=== PATIENT | male | born 1955 | race Caucasian/White ===

== ENCOUNTER 2025-01-15 09:10 | Outpatient (CLI) | payer BC, SELFPAY ==
--- OUTSIDE RECORDS SUMMARY | 2006-02-05 07:50 | XMS_ITS | Continuity of Care Document ---
Author Organization [facility] Address [address] [place] [phone] Phone Care Team Providers Care Tester Operator Name Role Phone Ben Robison MD Unavailable Unavailable Procedures Procedure Date Postop followup visit Postop followup visit [place] Office consultation, moderate 6 Repair finger tendon, closed Stack Splint, Finger Advance Directives Directive Yes / No Effective Date File Name No Information Encounters Encounter Description Practice Location Reason(s) For Visit Diagnoses Date Provider Providers Copied on Encounter [facility], [address] [place] [address], [id number], [phone] [facility] No Information 6 Enriqueta Contreras. [address] [place] [address], [address], [id number] , [place]. tel: [phone] [facility], [address] [place] [address], [id number], [place] tel:[phone] [facility] No Information 6 Enriqueta Contreras. [address] [place] [address], [address], [id number] , [place]. tel: [phone] Office consultation, moderate [facility], [address] [place] [address], [id number], tel:[phone] [facility] No Information 6 Enriqueta Contreras. [address] [facility], [address], [place], [place], [id number] , [place]. tel: [phone] Family History Family Member Type Diagnosis Age At Onset No Information Payers Payer name Insurance type Covered constitution party ID Authoraurea tibaldemar(s) [facility] [id number] Social History Type Description Quantity Date Captured Comments Sex Male Smoking Status No Information Chief Complaint And Reason For Visit No Information Reason For Referral Reason For Referral No Information History Of Present Illness Encounter Date Complaint History Of Prese nt Illness No Information Functional Status Date Functional Assessmen t No Information Instructions Date Instruction Additional Infor mation No Information Assessments Type Assessment Date No Information Patient Care Teams Name Effective Dates (start - stop) Status Members No Information
--- OUTSIDE RECORDS SUMMARY | 2025-01-15 09:40 | XMS_ITS | Patient Health Record ---
Author Organization [facility] Address [address] [place] [address] Care Team Providers Care Drill Press Hand Name Role Phone Madhu Dove MD Primary Care Provider UnavailANDRZEJ Tavarez Unavailable [phone] Dixie Richardson MD Unavailable Unavailable Allergies Allergen (clinical drug ingredient) Drug/Non Drug Allergy documented on EMR Reaction Allergy Type Onset Date Status keflex (uncoded) hives Allergy Act hieu wheat/dairy (uncoded) stomach upset/head aches Allergy Active Reason For Referral No Information Medications Medication SIG (Take, Route, Fr equency, Duration) Notes Start Date End Date Status Omeprazole 20 MG 1 capsule Orally Onc e a day; Duration: 30 day(s) Not-Taking Carac Not-Taking Avodart Not-Taking Problems Problem Type SNOMED Code ICD Code Onset Dates Problem Status W/U Status Risk Notes Problem Benign neoplasm of prostate (50843145) Benign neoplasm of prostate (222.2) Active confirmed Problem Chronic otitis externa (13669560) Other chronic otitis externa (380.23) Active confirmed Problem Actinic keratosis (737350) Actinic keratosis (702.0) Active confirmed Problem Vitamin D deficiency (45382355) Vitamin D deficiency, unspecified (E55.9) Active confirmed Problem Chronic otitis externa (82969007) Unspecified chronic otitis externa, unspecified ear (H60.60) Active confirmed Problem Sensorineural hearing loss of bilateral ears (disorder) (981409630) Sensorineural hearing loss, bilateral (H90.3) Active confirmed Problem Allergic rhinitis due to food (615904764) Allergic rhinitis due to food (J30.5) Active confirmed Problem Gastro-esophageal reflux disease with esophagitis (682793358) Gastro-esophageal reflux disease with esophagitis (K21.0) Active confirmed Problem Gastro-esophageal reflux disease without esophagitis (945763399) Gastro-esophageal reflux disease without esophagitis (K21.9) Active confirmed Problem Actinic keratosis (668501) Actinic keratosis (L57.0) Active confirmed Plan Of Treatment No Information Insurance Providers Payer Name Payer Address Payer Phone Subscriber Number Group Number Insured Name Patient Relationship to Insured Coverage Start Date Coverage End Date [facility] MED PLAN [address] [address] [place] [address] [phone] [id number] Mike Cleaning Self - patient is the insured Medical (General) History Medical History History ICD Code Prostate condition Actinic Keratosis Diverticulitis s/p Hemroidectomy s/p Lasik eye surgery otitis externa Surgical History Surgery Date(Month/Year) Hemroidectomy 2009 Lasik Eye surgery 2009
--- OUTSIDE RECORDS SUMMARY | 2025-01-15 09:40 | XMS_ITS | Clinical Summary ---
Author Organization [facility] [address] Address [address] [place] [id number] Care Team Providers Care Community Service Specialist Name Role Phone Uziel Bryan MD Primary Care Provider [phone] Allergies Active Allergy Reactions Criticality Noted Date Comments Cephalexin Rash Medium 04/29/2009 Medications amoxicillin-cla vulanate (AUGMENTIN) 875-125 mg per tabletIndicatio ns:Acute maxillary sinusitis, recurrence not specified Take 1 tablet by mouth 2 (two) times a day for 7 days 14 tablet 12/15/2024 Active Problems Problem Noted Date Diagnosed Date Lumbar spinal stenosis 05/20/2024 Overview (05/20/2024): CT 03/2023 Chronic prostatitis 05/20/2024 Overview (05/20/2024): Dr Aguilar Leon Elevated PSA treated with shereen and abx, off all meds as of 05/20/24 Erectile dysfunction 05/20/2024 Lower urinary tract symptoms due to benign prostatic hyperplasia 05/20/2024 Healthcare maintenance 05/20/2024 Hypersomnia 05/20/2024 Encounters Date Type Department Care Team Description 12/15/2024 7:15 PM CDT Office Visit [facility] at [address] [phone] Henry Arroyo NP Acute maxillary sinusitis, recurrence not specified (Primary Dx) from Last 3 Months Immunizations Immunization Administration Dates Next Due Influenza Virus Vaccine Trivalent Mdv 02/02/2024 Influenza, Unspecified 12/16/2022(Deferred: Mariluz ent Refused) Pfizer Sars-Cov-2 Bivalent V accination (12+ YRS) 02/08/2024 Pneumococcal Conjugate Pcv20 05/20/2024 Surgical History Surgery Date Site/Laterality Comments LASIK 2001,2009 COLON SURGERY 1968 APPENDECTOMY 1968 KNEE ARTHROSCOPY W/ LATERAL RELEASE 2006,2009 SHOULDER ARTHROSCOPY 03/18/2007 - 03/17/2008 Medical History Medical History Date Comments Sleep apnea 1995 GERD (gastroesophageal reflux disease) 1981 Benign prostatic hyperplasia 2012 Brain concussion March 2023 Family History Medical History Relation Name Comments Alzheimer's disease Father Mike Coelho Sr Alzheimer's disease Father's Sister Arthritis Mother Jewel Terracina Breast cancer Mother Jewel Terracina Memory loss Mother Jewel Terracina Miscarriages / Stillbirths Mother Jewel Terracin a Diabetes Sister 1 Rhiannonhomero Spencerch Cancer Sister 2 Sophia Yogi Diabetes Sister 2 Sophia Yogi Relation Name Status Comments Father Mike Coelho Sr Father's Sister Alive Mother Margarito Ornelasacina Sister 1 Rhiannon Staton Sister 2 Sophia Calix Alive Social History Tobacco Use Types Packs/Day Years Used Date Smoking Tobacco: Never Smokeless Tobacco: Never Tobacco Cessation:Counseling Given: Not Answered PHQ-2 Answer Date Recorded PHQ-2 Total Score (If total score is 3 or more points, staff should administer the PHQ-9) 0 05/20/2024 Personal Safety Answer Date Recorded Have you ever been in or are you currently in a harmful physical or emotional relationship or is someone making you feel afraid or unsafe? 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 Not on file Not on file Not on [employer] [employer] History Last Filed Vital Signs Vital Sign Reading Time Taken Comments Blood Pressure 120/79 12/15/2024 7:22 PM CDT Pulse 68 12/15/2024 7:22 PM CDT Temperature 36.4 C (97.6 F) 12/15/2024 7:22 PM CDT Respiratory Rate 20 12/15/2024 7:22 PM CDT Oxygen Saturation 98% 12/15/2024 7:22 PM CDT Inhaled Oxygen Concentration - - Weight 76.7 kg (169 lb) 12/15/2024 7:22 PM CDT Height 175.3 cm (5' 9) 05/20/2024 8:52 AM BOAT OUTFITTER Body Mass Index 24.96 05/20/2024 8:52 AM BOAT OUTFITTER Plan of Treatment Health Maintenance Due Date Last Done Comments Colon Cancer Screening-Colonoscopy 1957 Prostate Cancer Screening-PSA 1957 DTaP/Tdap/Td Vaccine (1 - Tdap) 1968 Hepatitis B Screening 10/04/1975 Zoster Vaccine (1 of 2) 10/04/2007 Covid-19 Vaccine (2 - season) 2024 Influenza Vaccine (#1) 2024 02/02/2024 Depression Screening 05/20/2025 05/20/2024 Fall Risk Assessment 05/20/2025 05/20/2024 Well Visit 65+ 05/20/2025 05/20/2024 Pneumococcal vaccine 65+ Completed 05/20/2024 Hepatitis C Screening Completed 06/05/2024 Procedures Procedure Name Priority Date/Time Associated Diagnosis Comments HEPATITIS C ANTIBODY Routine 06/05/2024 8:12 AM CDT Healthcare maintenance from Last 3 Months or Most Recently Relevant to Health Maintenance Results * Hepatitis C antibody Blood (06/05/2024 8:12 AM CDT) Hep C Ab Nonreactive Nonreactive Comment: Interpretive Data Nonreactive: Antibodies to HCV not detected. Does NOT exclude the possibility of recent exposure to HCV. Equivocal: Equivocal for HCV antibodies. Supplemental molecular testing will be automatically performed to determine infection status in accordance with current CDC screening recommendations. Reactive: Positive for HCV antibodies. This may represent current or past HCV infection. Supplemental molecular testing will be automatically performed to determine current infection status in accordance with current CDC screening recommendations. Interpretive data was last revised on 2019. Blood 06/05/2024 8:12 AM CDT 06/05/2024 3:55 PM CDT us Uziel Bryan MD LAB MICROBIOLOGY - GENERAL [place] [id number] [address] Department [place] [address] from Last 3 Months or Most Recently Relevant to Health Maintenance Insurance [facility] Care Teams Community Service Specialist Relationship Specialty Start Date End Date Uziel Bryan MD [address] [address] PCP - General Internal Medicine 05/20/24
--- OUTSIDE RECORDS SUMMARY | 2025-01-15 09:41 | XMS_ITS | Patient Health Record ---
Author Organization [facility] Address [address] [place] [address] Care Team Providers Care Address Change Clerk Name Role Phone Madhu Dove MD Primary Care Provider Salomón Neumann Unavailable [phone] Allergies Allergen (clinical drug ingredient) Drug/Non Drug Allergy documented on EMR Reaction Allergy Type Onset Date Status Keflex Unknown Drug Allergy Active Reason For Referral No Information Social History Tobacco Use: Social History Observation Description Date Details (start date - stop date) Never Smoker NA - NA Tobacco Use/Smoking Question Answer Notes Smoking Status: nonsmoker Problems Problem Type SNOMED Code ICD Code Onset Dates Problem Status W/U Status Risk Notes Problem Lower urinary tract symptoms due to benign prostatic hypertrophy (77108857073090) Benign prostatic hyperplasia with lower urinary tract symptoms (N40.1) Active confirmed Problem Chronic prostatitis (29133207) Prostatitis, chronic (N41.1) Active confirmed Problem Erectile dysfunction (805284911) Erectile dysfunction (N52.9) Active confirmed Plan Of Treatment Pending Test Test Name Order Date IH - Bladder scan 04/24/2022 IH - Bladder scan 12/13/2020 IH - Bladder scan 04/20/2021 IH - Urinalysis Auto W/O Scope W/O Creat inine 12/13/2020 IH - Urinalysis Auto W/O Scope W/O Creat inine 04/20/2021 PSA Total+% Free (Serial) MORALEZ ([id number]) Urine FISH-UroVysion MORALEZ 04/30/2022 Urine FISH-UroVysion MORALEZ 04/24/2022 Urine Cytology 04/24/2022 Insurance Providers Payer Name Payer Address Payer Phone Subscriber Number Group Number Insured Name Patient Relationship to Insured Coverage Start Date Coverage End Date [facility] [address] [address] [place] [address] [id number] Mike Coelho Self - patient is the insured Medical (General) History Surgical History Surgery Date(Month/Year) APPENDECTOMYY LASIK DIVERTICULITIS LT KNEE
[2025-01-15 11:14] LABS: Prostate Specific Antigen 2.3 ng/mL (< OR = 4.0)
== END 2025-01-15 09:11 | disposition home or self-care (01) ==
PROVIDERS: PCP Internal Medicine; Referring Provider Internal Medicine; Visit Provider Urology
DX: N40.1 Benign prostatic hyperplasia with lower urinary tract symptoms (principal)
CPT/HCPCS: 36415; 84153